=== PATIENT | male | born 1960 | race Caucasian/White ===

== ENCOUNTER 2024-02-01 08:33 | Outpatient (CLI) | payer OTHER, MEDICARE | END 2024-02-01 23:59 | disposition home or self-care (01) | LOC: RAD 08:33 | PROVIDERS: ATTEND Podiatrist Foot & Ankle Surgery | DX: S93.05XA Dislocation of left ankle joint, initial encounter (principal); M14.679 Charcot's joint, unspecified ankle and foot; M79.672 Pain in left foot; M24.573 Contracture, unspecified ankle; G62.9 Polyneuropathy, unspecified; X58.XXXA Exposure to other specified factors, initial encounter; Y93.89 Activity, other specified; Y92.89 Other specified places as the place of occurrence of the external cause; Y99.8 Other external cause status | CPT/HCPCS: 73700 ==

== ENCOUNTER 2024-05-30 10:33 | Day surgery (SDC) | payer BC, MEDICARE ==
[2024-05-30] VITALS (11 sets, daily range): BP systolic 129–166; BP diastolic 80–91; PULSE 57–68; RESP 11–18; TEMP 98.3; O2SAT 94–96
[~2024-05-30] VITALS: Ht 182.9 cm; Wt 102.1 kg
[2024-05-30] MEDS ORDERED: LORazepam 0.5 MG tablet PO PRN (11:10)
[2024-05-30] MEDS ORDERED: nitroGLYCERIN 0.4mg SUBLingual tab SL PRN (11:10)
[2024-05-30] MEDS ORDERED: glucagon, human recombinant 1mg kit SUBCUT PRN (11:10)
[2024-05-30] MEDS ORDERED: diphenhydrAMINE 25mg capsule PO PRN (11:10)
[2024-05-30] MEDS ORDERED: dextrose 50%-water 50ml dispensing syringe IV PRN ×2 (11:10)
[2024-05-30] MEDS ORDERED: normal saline 1,000 ML IV SCH (11:10)
[2024-05-30] MEDS ORDERED: DEXTROSE 15 GM of carb/4 tabs (each vial/BOTTLE has 4 tablets) PO PRN ×2 (11:10)
[2024-05-30 11:23] LABS: BASOPHILS # (AUTO) 0.1 X10'3 (0-0.2); EOSINOPHILS # (AUTO) 0.1 X10'3 (0-0.9); EOSINOPHILS % (AUTO) 1.3 % (0-6); HEMATOCRIT 42.4 % (42.0-52.0); HEMOGLOBIN 14.5 g/dl (14.0-17.9); LYMPHOCYTES # (AUTO) 1.4 X10'3 (1.1-4.8); LYMPHOCYTES % (AUTO) 16.5 % (21-51); MEAN CORPUSCULAR HEMOGLOBIN 33.6 PG (27.0-31.0); MEAN CORPUSCULAR HGB CONC 34.3 g/dL (33.0-36.5); MEAN CORPUSCULAR VOLUME 97.9 FL (78-98); MEAN PLATELET VOLUME 8.3 FL (7.4-10.4); MONOCYTES # (AUTO) 0.7 X10'3 (0-0.9); MONOCYTES % (AUTO) 8.5 % (2-12); NEUTROPHILS # (AUTO) 6.1 X10'3 (1.8-7.7); NEUTROPHILS % (AUTO) 72.7 % (42-75); PLATELET COUNT 234 X10'3 (140-440); RED BLOOD COUNT 4.33 X10'6 (4.70-6.10); RED CELL DISTRIBUTION WIDTH 13.3 % (11.5-14.5); WHITE BLOOD COUNT 8.4 X10'3 (4.5-11.0)
[2024-05-30] MEDS ORDERED: LISI1TAB49 PO (11:23)
[2024-05-30] MEDS ORDERED: ATOR40TA PO (11:23)
[2024-05-30] MEDS ORDERED: METF-900 PO (11:23)
[2024-05-30] MEDS ORDERED: GLIM4TAB7 PO (11:23)
[2024-05-30] MEDS ORDERED: INSU100V41 INJ (11:23)
[2024-05-30] MEDS ORDERED: ASCO500C17 PO (11:23)
[2024-05-30] MEDS ORDERED: MULT-1085 PO (11:23)
[2024-05-30] MEDS ORDERED: DOXY-1 PO (11:23)
[2024-05-30 11:28] LABS: ALBUMIN 4.1 G/DL (3.4-5.0); ANION GAP 10 (8-16); BLOOD UREA NITROGEN 17 MG/DL (7-18); BUN/CREATININE RATIO 17.3 (10.0-20.0); CALCIUM 9.5 MG/DL (8.5-10.1); CHLORIDE 100 MMOL/L (99-107); CREATININE 0.98 MG/DL (0.60-1.10); GLUCOSE 153 MG/DL (70-104); POTASSIUM 4.3 MMOL/L (3.5-5.1); SODIUM 136 MMOL/L (135-145); TOTAL CARBON DIOXIDE 25.7 MMOL/L (24-32); eCRCL 81 ML/MIN; eGFR 77 ML/MIN
[2024-05-30 11:33] LABS: APTT 25 SECONDS (22-32); PROTHROMBIN TIME 10.5 SECONDS (9.0-12.0)
[2024-05-30] MEDS ORDERED: midazolam 1 mg/ML 2ml injection ONE ×2 (12:54→13:48)
[2024-05-30] MEDS ORDERED: fentaNYL/PF 50MCG/1 ML 2ML syringe ONE ×2 (12:54→13:48)
[2024-05-30] MEDS ORDERED: LIDOcaine 1% 30ml preserv. free vial ONE (12:54)
[2024-05-30] MEDS ORDERED: iohexol 350 MG/ML 50ML vial IV ONE (12:54)
[2024-05-30] MEDS ORDERED: iohexol 350MG/ML 100ml bottle IV ONE (12:55)
[2024-05-30] MEDS ORDERED: normal saline 1,000 ML IV ONE (14:57)
[2024-05-30] MEDS ORDERED: ondansetron/PF 4mg/2ml inj IV PRN (15:00)
[2024-05-30] MEDS ORDERED: OXAZEpam 15mg capsule PO PRN (15:00)
[2024-05-30] MEDS ORDERED: HYDROcodone/acetaminophen 5mg/325mg tablet PO PRN (15:00)
[2024-05-30] MEDS ORDERED: HYDROcodone/acetaminophen 10/325mg tab PO PRN (15:00)
[2024-05-30] MEDS ORDERED: proCHLORperazine 10 MG/2 ml inj IV PRN (15:00)
== END 2024-05-30 19:33 | disposition home or self-care (01) ==
LOC: SSTAY O 10:33
PROVIDERS: ATTEND Internal Medicine Cardiovascular Disease
DX: R94.39 Abnormal result of other cardiovascular function study (principal); I49.1 Atrial premature depolarization; I10 Essential (primary) hypertension; E11.40 Type 2 diabetes mellitus with diabetic neuropathy, unspecified; E66.9 Obesity, unspecified; G47.30 Sleep apnea, unspecified; I25.2 Old myocardial infarction
CPT/HCPCS: 36415; 71046; 80048; 82948; 85025; 85610; 85730; 93005; 93459; 99152; 99153; J1644; J2250; J3010; J3490; J7030; Q9967; 93458; A6258; C1760

== ENCOUNTER 2024-08-30 05:27 | Inpatient (IN) | payer BC, MEDICARE ==
[2024-08-23 14:13] LABS: BASOPHILS # (AUTO) 0.1 X10'3 (0-0.2); BASOPHILS % (AUTO) 1.3 % (0-1); EOSINOPHILS # (AUTO) 0.1 X10'3 (0-0.9); EOSINOPHILS % (AUTO) 0.9 % (0-6); LYMPHOCYTES # (AUTO) 1.9 X10'3 (1.1-4.8); LYMPHOCYTES % (AUTO) 22.2 % (21-51); MEAN CORPUSCULAR HEMOGLOBIN 34.3 PG (27.0-31.0); MEAN CORPUSCULAR HGB CONC 34.5 g/dL (33.0-36.5); MEAN CORPUSCULAR VOLUME 99.4 FL (78-98); MEAN PLATELET VOLUME 8.8 FL (7.4-10.4); MONOCYTES # (AUTO) 0.7 X10'3 (0-0.9); NEUTROPHILS # (AUTO) 5.7 X10'3 (1.8-7.7); NEUTROPHILS % (AUTO) 67.6 % (42-75); PRE OP HEMATOCRIT 41.8 % (42.0-52.0); PRE OP HEMOGLOBIN 14.4 g/dL (14.0-17.9); PRE OP PLATELET COUNT 193 X10'3 (140-440); PRE OP WHITE BLOOD COUNT 8.4 10'3 (4.8-10.8); RED CELL DISTRIBUTION WIDTH 13.1 % (11.5-14.5)
[2024-08-23 14:25] LABS: ALBUMIN 3.9 G/DL (3.4-5.0); ALKALINE PHOSPHATASE 108 IU/L (46-116); BLOOD UREA NITROGEN 14 MG/DL (7-18); BUN/CREATININE RATIO 14.4 (10.0-20.0); CALCIUM 9.3 MG/DL (8.5-10.1); CHLORIDE 100 MMOL/L (99-107); CREATININE 0.97 MG/DL (0.60-1.10); PRE OP ALT 32 U/L (30-65); PRE OP ANION GAP 7 (8-16); PRE OP AST 30 U/L (10-37); PRE OP BILIRUB, TOTAL 1.1 MG/DL (0.0-1.0); PRE OP GLUCOSE 130 MG/DL (70-104); PRE OP INR 1.1 INR; PRE OP POTASSIUM 4.3 MMOL/L (3.4-5.1); PRE OP PROTIME 11.5 SECONDS (9.0-12.0); PRE OP SODIUM 136 MMOL/L (135-145); TOTAL PROTEIN 7.7 G/DL (6.4-8.2); eGFR 77 ML/MIN
[2024-08-23 14:26] LABS: HEMOGLOBIN A1C 6.9 % (4.5-6.2)
[2024-08-23 15:35] LABS: BILIRUBIN,URINE NEGATIVE (Neg); CLARITY,URINE CLEAR (Clear); COLOR,URINE YELLOW (Yellow); GLUCOSE, URINE NEGATIVE (Neg); KETONES,URINE NEGATIVE (Neg); LEUKOCYTE ESTERASE ,URINE NEGATIVE (Neg); NITRITES, URINE NEGATIVE (Neg); OCCULT BLOOD,URINE NEGATIVE (Neg); PH,URINE 6.5 (4.8-8.0); PROTEIN,URINE NEGATIVE (Neg); UROBILINOGEN,URINE 0.2 E.U/dL (0.2-1.0)
[2024-08-23 15:40] LABS: UA COLLECTION TYPE CLN CATCH MIDSTREAM
[2024-08-27 09:29] LABS: ABG BASE EXCESS -1.5 mmol/L (-2.0-3.0); ABG HCO3 22.1 mmol/L (21.0-28.0); ABG OXYGEN SATURATION 94.4 % (94.0-98.0); ABG PCO2 (T) 34.1 mmHg (35.0-48.0); ABG PH (T) 7.429 (7.350-7.450); ABG PO2 (T) 74.1 mmHg (83.0-108.0); ALLEN'S TEST POSITIVE; FCOHb 0.3 % (0.5-1.5); FHHb 5.6 % (0.0-5.0); FMetHb 0.1 % (0.0-1.5); MODE ROOM AIR; TOTAL HEMOGLOBIN 14.5 G/dl (13.5-17.5)
[~2024-08-30] VITALS: Ht 180.3 cm; Wt 108.0 kg
[2024-08-30] VITALS (20 sets, daily range): BP systolic 97–169; BP diastolic 49–97; PULSE 57–66; RESP 7–18; TEMP 97.8; O2SAT 92–100
[~2024-08-30 05:27] MED LIST: ATOR40TA PO; DOXY-1 PO; GLIM4TAB7 PO; INSU100V41 INJ; LISI1TAB51 PO; METF-1203 PO
[2024-08-30] MEDS ORDERED: insulin glargine (Lantus) pen - multi-dose SQ PRN ×2 (05:30→11:00)
[2024-08-30] MEDS: ceFAZolin 2gm in dextrose, iso 50 ML IV ONE (05:30)
[2024-08-30] MEDS: Insulin Reg/NS 100units/100mL 100 ML IV SCH ×2 (05:30→12:07)
[2024-08-30] MEDS ORDERED: dextrose 50%-water 50ml dispensing syringe IV PRN ×2 (05:30→11:00)
[2024-08-30] MEDS: epiNEPHrine 1 mg/ml inj ONE (06:46)
[2024-08-30] MEDS: ceFAZolin 1000mg inj ONE (06:46)
[2024-08-30] MEDS: vancomycin 1,000mg inj ONE (06:46)
[2024-08-30] MEDS: BUPIVAcaine 0.5% inj/PF 30 ML ONE (06:46)
[2024-08-30] MEDS: ringers solution, lacted 1,000 ML IV SCH (07:05)
[2024-08-30] MEDS: metoprolol tartrate 12.5mg (1/2 tablet) PO ONE (07:06)
[2024-08-30] MEDS: mupirocin 2% nasal ointment 1gm UD NS ONE (07:06)
[2024-08-30] MEDS: vancomycin 1,500 MG in NS 300ml IV soln IV ONE (07:06)
[2024-08-30] MEDS: famotidine 20mg tablet PO ONE (07:06)
[2024-08-30] MEDS ORDERED: SUfentanil 50mcg/ml 1ml amp IV ONE (07:52)
[2024-08-30] MEDS ORDERED: rocuronium 10mg/ml inj IV ONE ×2 (07:54→10:30)
[2024-08-30] MEDS ORDERED: LIDOcaine 2% (20mg/ml) 5ml vial ONE (07:54)
[2024-08-30] MEDS ORDERED: propofol inj 20 ML IV ONE (07:54)
[2024-08-30] MEDS ORDERED: isoflurane 100ml inhalation liquid IH ONE (07:55)
[2024-08-30] MEDS: LORazepam 2 mg/ml vial ONE (08:03)
[2024-08-30] MEDS: ceFAZolin 1000mg inj IR ONE (08:33)
[2024-08-30 08:54] LABS: ABG BASE EXCESS -1.1 mmol/L (-2.0-3.0); ABG HCO3 21.5 mmol/L (21.0-28.0); ABG OXYGEN SATURATION 98.8 % (94.0-98.0); ABG PCO2 29.7 mmHg (35.0-48.0); ABG PH 7.477 (7.350-7.450); ABG PO2 169.9 mmHg (83.0-108.0); CL (ABG) 102 mmol/L (98-107); FCOHb 0.3 % (0.5-1.5); FHHb 1.2 % (0.0-5.0); FO2Hb 98.5 % (94.0-98.0); GLUCOSE (ABG) 109 mg/dl (65-95); IONIZED CA (ABG) 1.16 mmol/L (1.15-1.33); K (ABG) 3.9 mmol/L (3.40-4.50); TOTAL HEMOGLOBIN 12.3 G/dl (13.5-17.5)
[2024-08-30] MEDS: LORazepam 2 mg/ml vial IV PRN (09:05)
[2024-08-30] MEDS ORDERED: albuterol 2.5 MG/3 ML nebule NEB PRN (10:00)
[2024-08-30] MEDS ORDERED: albumin (Human) 5% 250ml 250 ML IV ONE ×2 (10:30)
[2024-08-30 10:48] LABS: ABG BASE EXCESS -4.2 mmol/L (-2.0-3.0); ABG HCO3 20.6 mmol/L (21.0-28.0); ABG OXYGEN SATURATION 94.7 % (94.0-98.0); ABG PCO2 36.9 mmHg (35.0-48.0); ABG PH 7.365 (7.350-7.450); ABG PO2 79.3 mmHg (83.0-108.0); CL (ABG) 105 mmol/L (98-107); FCOHb 0.3 % (0.5-1.5); FHHb 5.3 % (0.0-5.0); FMetHb 0.3 % (0.0-1.5); FO2Hb 94.1 % (94.0-98.0); GLUCOSE (ABG) 170 mg/dl (65-95); IONIZED CA (ABG) 1.09 mmol/L (1.15-1.33); K (ABG) 3.9 mmol/L (3.40-4.50); TOTAL HEMOGLOBIN 11.3 G/dl (13.5-17.5)
[2024-08-30] MEDS ORDERED: potassium Cl 40MEQ/1/2NS 520ml 520 ML IV PRN (11:00)
[2024-08-30] MEDS ORDERED: magnesium hydroxide 30ml (MOM) UD suspension PO PRN (11:00)
[2024-08-30] MEDS ORDERED: metoclopramide 5 mg/ml inj IV PRN (11:00)
[2024-08-30] MEDS ORDERED: mineral oil 133ml enema RC PRN (11:00)
[2024-08-30] MEDS ORDERED: ondansetron/PF 4mg/2ml inj IV PRN (11:00)
[2024-08-30] MEDS ORDERED: morphine 4 MG/ML inj SYRINge IV PRN (11:00)
[2024-08-30] MEDS ORDERED: Neutra Phos packet PO PRN (11:00)
[2024-08-30] MEDS ORDERED: nitroGLYCERIN-Tridil 50MG/D5W 250 ML IV PRN (11:00)
[2024-08-30] MEDS ORDERED: niCARDipine-NS 40mg/200ml IVPB 200 ML IV PRN (11:00)
[2024-08-30] MEDS ORDERED: bisacodyl 10mg suppository rectal RC PRN (11:00)
[2024-08-30] MEDS ORDERED: sodium phosphate inj. 30 MMOL in dextrose 5%-water 250 ML IV PRN (11:00)
[2024-08-30] MEDS ORDERED: acetaminophen 325mg tablet PO PRN ×2 (11:00)
[2024-08-30] MEDS ORDERED: potassium CL 10mEq/100ml bag 100 ML IV PRN (11:00)
[2024-08-30 11:35] LABS: ABG BASE EXCESS -4.3 mmol/L (-2.0-3.0); ABG HCO3 20.9 mmol/L (21.0-28.0); ABG OXYGEN SATURATION 97.7 % (94.0-98.0); ABG PCO2 (T) 35.4 mmHg (35.0-48.0); ABG PH (T) 7.379 (7.350-7.450); FCOHb 0.3 % (0.5-1.5); FHHb 2.3 % (0.0-5.0); FMetHb 0.3 % (0.0-1.5); FO2Hb 97.1 % (94.0-98.0); MODE VENT - SIMV/VC; PATIENT TEMPERATURE 35.1; PEEP 5 cm H2O; RESPIRATORY RATE 12 b/min; TIDAL VOLUME 600 mL; TOTAL HEMOGLOBIN 11.9 G/dl (13.5-17.5)
[2024-08-30 11:42] LABS: BASOPHILS # (AUTO) 0.1 X10'3 (0-0.2); BASOPHILS % (AUTO) 0.7 % (0-1); EOSINOPHILS # (AUTO) 0.1 X10'3 (0-0.9); EOSINOPHILS % (AUTO) 0.7 % (0-6); HEMATOCRIT 32.7 % (42.0-52.0); HEMOGLOBIN 10.9 g/dl (14.0-17.9); LYMPHOCYTES # (AUTO) 1.5 X10'3 (1.1-4.8); LYMPHOCYTES % (AUTO) 11.7 % (21-51); MEAN CORPUSCULAR HEMOGLOBIN 33.3 PG (27.0-31.0); MEAN CORPUSCULAR HGB CONC 33.5 g/dL (33.0-36.5); MEAN CORPUSCULAR VOLUME 99.4 FL (78-98); MEAN PLATELET VOLUME 8.5 FL (7.4-10.4); MONOCYTES # (AUTO) 0.7 X10'3 (0-0.9); MONOCYTES % (AUTO) 5.7 % (2-12); NEUTROPHILS # (AUTO) 10.4 X10'3 (1.8-7.7); NEUTROPHILS % (AUTO) 81.2 % (42-75); PLATELET COUNT 133 X10'3 (140-440); RED BLOOD COUNT 3.29 X10'6 (4.70-6.10); RED CELL DISTRIBUTION WIDTH 13.1 % (11.5-14.5); WHITE BLOOD COUNT 12.9 X10'3 (4.5-11.0)
[2024-08-30] MEDS: albumin (Human) 5% 250ml 250 ML IV PRN (12:06)
[2024-08-30] MEDS: sodium chloride 0.45% 1,000 ML IV SCH (12:29)
[2024-08-30 12:34] LABS: APTT 27 SECONDS (22-32); INR 1.3 INR
[2024-08-30 12:36] LABS: ALANINE AMINOTRANSFERASE 26 U/L (12-78); ALBUMIN 3.1 G/DL (3.4-5.0); ALBUMIN/GLOBULIN RATIO 1.3 (1.1-1.5); ALKALINE PHOSPHATASE 62 IU/L (46-116); ANION GAP 11 (8-16); ASPARTATE AMINO TRANSFERASE 24 U/L (10-37); BILIRUBIN,TOTAL 0.9 MG/DL (0.1-1.0); BLOOD UREA NITROGEN 12 MG/DL (7-18); BUN/CREATININE RATIO 13.8 (10.0-20.0); CALCIUM 7.5 MG/DL (8.5-10.1); CHLORIDE 105 MMOL/L (99-107); CREATININE 0.87 MG/DL (0.60-1.10); GLUCOSE 157 MG/DL (70-104); MAGNESIUM 1.4 MG/DL (1.5-2.4); PHOSPHORUS 2.8 MG/DL (2.3-4.5); POTASSIUM 3.7 MMOL/L (3.5-5.1); SODIUM 138 MMOL/L (135-145); TOTAL PROTEIN 5.4 G/DL (6.4-8.2); eCRCL 89 ML/MIN; eGFR 88 ML/MIN
[2024-08-30] MEDS: ketorolac trometh 15mg/ml vial 15 MG/ML ML IV SCH (13:03)
[2024-08-30] MEDS: magnesium sulf-water 4G/100mL 100 ML IV PRN (13:19)
[2024-08-30] MEDS: potassium Cl 20mEq/100mL bag 100 ML IV PRN (13:19)
[2024-08-30] MEDS: NORepinephrine 8mg/ 250ml NS 250 ML IV SCH (15:38)
[2024-08-30] MEDS: morphine 2 MG/ML inj. syringe IV PRN (16:47)
[2024-08-30] MEDS: ceFAZolin/D5W- 1GM premix 50 ML IV SCH (17:04)
[2024-08-30 17:38] LABS: BASOPHILS # (AUTO) 0.1 X10'3 (0-0.2); BASOPHILS % (AUTO) 0.5 % (0-1); EOSINOPHILS % (AUTO) 0.1 % (0-6); HEMATOCRIT 30.2 % (42.0-52.0); HEMOGLOBIN 10.1 g/dl (14.0-17.9); LYMPHOCYTES # (AUTO) 0.7 X10'3 (1.1-4.8); LYMPHOCYTES % (AUTO) 5.7 % (21-51); MEAN CORPUSCULAR HEMOGLOBIN 33.3 PG (27.0-31.0); MEAN CORPUSCULAR HGB CONC 33.6 g/dL (33.0-36.5); MEAN CORPUSCULAR VOLUME 99.2 FL (78-98); MEAN PLATELET VOLUME 8.6 FL (7.4-10.4); MONOCYTES # (AUTO) 0.7 X10'3 (0-0.9); MONOCYTES % (AUTO) 6.1 % (2-12); NEUTROPHILS # (AUTO) 10.4 X10'3 (1.8-7.7); NEUTROPHILS % (AUTO) 87.6 % (42-75); PLATELET COUNT 151 X10'3 (140-440); RED BLOOD COUNT 3.05 X10'6 (4.70-6.10); RED CELL DISTRIBUTION WIDTH 13.2 % (11.5-14.5); WHITE BLOOD COUNT 11.8 X10'3 (4.5-11.0)
[2024-08-30 18:01] LABS: ALBUMIN 3.5 G/DL (3.4-5.0); ANION GAP 10 (8-16); BLOOD UREA NITROGEN 12 MG/DL (7-18); BUN/CREATININE RATIO 13.2 (10.0-20.0); CALCIUM 7.7 MG/DL (8.5-10.1); CHLORIDE 106 MMOL/L (99-107); CREATININE 0.91 MG/DL (0.60-1.10); GLUCOSE 128 MG/DL (70-104); MAGNESIUM 2.7 MG/DL (1.5-2.4); PHOSPHORUS 2.6 MG/DL (2.3-4.5); POTASSIUM 4.9 MMOL/L (3.5-5.1); SODIUM 136 MMOL/L (135-145); TOTAL CARBON DIOXIDE 19.8 MMOL/L (24-32); eCRCL 85 ML/MIN; eGFR 83 ML/MIN
[2024-08-30] MEDS: amiodarone 150mg/dext, iso-os 100 ML IV ONE (18:31)
[2024-08-30] MEDS: amiodarone/D5 360MG/200ML BAG 200 ML IV SCH (18:40)
[2024-08-30] MEDS: vancomycin/NS 1 GM ADD-VANTAGE 250 ML IV SCH (20:20)
[2024-08-30] MEDS: mupirocin 2% nasal ointment 1gm UD NS SCH (20:21)
[2024-08-30] MEDS: atorvastatin 10mg tablet PO SCH (20:21)
[2024-08-30] MEDS: sennosides/docusate sodium tablet PO SCH (20:22)
[2024-08-31] VITALS (28 sets, daily range): BP systolic 98–128; BP diastolic 49–76; PULSE 50–77; RESP 14–26; O2SAT 89–97
[2024-08-31 02:34] LABS: BASOPHILS # (AUTO) 0.1 X10'3 (0-0.2); BASOPHILS % (AUTO) 0.7 % (0-1); EOSINOPHILS % (AUTO) 0.1 % (0-6); HEMATOCRIT 31.1 % (42.0-52.0); HEMOGLOBIN 10.7 g/dl (14.0-17.9); LYMPHOCYTES # (AUTO) 1.3 X10'3 (1.1-4.8); LYMPHOCYTES % (AUTO) 13.5 % (21-51); MEAN CORPUSCULAR HEMOGLOBIN 34.2 PG (27.0-31.0); MEAN CORPUSCULAR HGB CONC 34.4 g/dL (33.0-36.5); MEAN CORPUSCULAR VOLUME 99.4 FL (78-98); MEAN PLATELET VOLUME 8.9 FL (7.4-10.4); MONOCYTES # (AUTO) 0.8 X10'3 (0-0.9); MONOCYTES % (AUTO) 8.6 % (2-12); NEUTROPHILS # (AUTO) 7.6 X10'3 (1.8-7.7); NEUTROPHILS % (AUTO) 77.1 % (42-75); PLATELET COUNT 144 X10'3 (140-440); RED BLOOD COUNT 3.13 X10'6 (4.70-6.10); RED CELL DISTRIBUTION WIDTH 13.5 % (11.5-14.5); WHITE BLOOD COUNT 9.8 X10'3 (4.5-11.0)
[2024-08-31 02:48] LABS: ALANINE AMINOTRANSFERASE 23 U/L (12-78); ALBUMIN 3.2 G/DL (3.4-5.0); ALBUMIN/GLOBULIN RATIO 1.3 (1.1-1.5); ALKALINE PHOSPHATASE 57 IU/L (46-116); ANION GAP 9 (8-16); ASPARTATE AMINO TRANSFERASE 24 U/L (10-37); BILIRUBIN,TOTAL 0.8 MG/DL (0.1-1.0); BLOOD UREA NITROGEN 11 MG/DL (7-18); BUN/CREATININE RATIO 10.8 (10.0-20.0); CALCIUM 7.6 MG/DL (8.5-10.1); CHLORIDE 105 MMOL/L (99-107); CREATININE 1.02 MG/DL (0.60-1.10); GLUCOSE 132 MG/DL (70-104); MAGNESIUM 2.3 MG/DL (1.5-2.4); PHOSPHORUS 2.8 MG/DL (2.3-4.5); POTASSIUM 4.3 MMOL/L (3.5-5.1); SODIUM 134 MMOL/L (135-145); TOTAL CARBON DIOXIDE 19.8 MMOL/L (24-32); TOTAL PROTEIN 5.6 G/DL (6.4-8.2); eCRCL 76 ML/MIN; eGFR 73 ML/MIN
[2024-08-31] MEDS: magnesium sulf-water 2g/50mL 50 ML IV PRN (03:32)
[2024-08-31] MEDS: potassium Cl 40MEQ/270ML bag 250 ML IV PRN (03:55)
[2024-08-31] MEDS: metoprolol tartrate 12.5mg (1/2 tablet) PO SCH (08:00)
[2024-08-31] MEDS: albumin (Human) 5% 250ml 250 ML IV ONE (08:31)
[2024-08-31] MEDS: aspirin 81mg tab.chew PO SCH (08:35)
[2024-08-31] MEDS: DOPamine 400mg/D5W 250ml 250 ML IV SCH (08:44)
[2024-08-31 09:53] LABS: ABG BASE EXCESS -7.9 mmol/L (-2.0-3.0); ABG HCO3 16.9 mmol/L (21.0-28.0); ABG OXYGEN SATURATION 91.8 % (94.0-98.0); ABG PCO2 (T) 32.1 mmHg (35.0-48.0); ABG PO2 (T) 65.3 mmHg (83.0-108.0); FCOHb 0.3 % (0.5-1.5); FHHb 8.2 % (0.0-5.0); FMetHb 0.3 % (0.0-1.5); FO2Hb 91.2 % (94.0-98.0); MODE MASK - NRB; PATIENT TEMPERATURE 36.9; TOTAL HEMOGLOBIN 10.9 G/dl (13.5-17.5)
[2024-08-31] MEDS: HYDROcodone/acetaminophen 10/325mg tab PO PRN ×2 (15:06→20:53)
[2024-09-01] VITALS (32 sets, daily range): BP systolic 99–141; BP diastolic 57–81; PULSE 58–82; RESP 13–29; O2SAT 90–100
[2024-09-01 04:54] LABS: ALBUMIN 2.9 G/DL (3.4-5.0); ANION GAP 5 (8-16); BLOOD UREA NITROGEN 10 MG/DL (7-18); BUN/CREATININE RATIO 9.9 (10.0-20.0); CALCIUM 7.9 MG/DL (8.5-10.1); CHLORIDE 105 MMOL/L (99-107); CREATININE 1.01 MG/DL (0.60-1.10); GLUCOSE 126 MG/DL (70-104); MAGNESIUM 2.1 MG/DL (1.5-2.4); PHOSPHORUS 2.1 MG/DL (2.3-4.5); POTASSIUM 4.3 MMOL/L (3.5-5.1); SODIUM 133 MMOL/L (135-145); eCRCL 77 ML/MIN; eGFR 74 ML/MIN
[2024-09-01 06:34] LABS: BASOPHILS # (AUTO) 0.1 X10'3 (0-0.2); BASOPHILS % (AUTO) 0.4 % (0-1); EOSINOPHILS # (AUTO) 0.1 X10'3 (0-0.9); EOSINOPHILS % (AUTO) 0.6 % (0-6); HEMOGLOBIN 11.3 g/dl (14.0-17.9); LYMPHOCYTES # (AUTO) 1.4 X10'3 (1.1-4.8); LYMPHOCYTES % (AUTO) 10.5 % (21-51); MEAN CORPUSCULAR HGB CONC 34.2 g/dL (33.0-36.5); MEAN CORPUSCULAR VOLUME 99.4 FL (78-98); MEAN PLATELET VOLUME 8.9 FL (7.4-10.4); MONOCYTES % (AUTO) 8.1 % (2-12); NEUTROPHILS # (AUTO) 10.4 X10'3 (1.8-7.7); NEUTROPHILS % (AUTO) 80.4 % (42-75); PLATELET COUNT 137 X10'3 (140-440); RED BLOOD COUNT 3.32 X10'6 (4.70-6.10); RED CELL DISTRIBUTION WIDTH 13.4 % (11.5-14.5); WHITE BLOOD COUNT 12.9 X10'3 (4.5-11.0)
[2024-09-01] MEDS: pantoprazole 40mg Tablet.DR PO SCH (08:10)
[2024-09-01] MEDS: sodium phosphate inj. 15 MMOL in dextrose 5%-water 250 ML IV PRN (08:10)
[2024-09-01] MEDS ORDERED: glucagon, human recombinant 1mg kit SUBCUT PRN (09:20)
[2024-09-01] MEDS ORDERED: DEXTROSE 15 GM of carb/4 tabs (each vial/BOTTLE has 4 tablets) PO PRN ×2 (09:20)
[2024-09-01] MEDS ORDERED: dextrose 50%-water 50ml dispensing syringe IV PRN ×2 (09:20)
[2024-09-01] MEDS: INSULIN LISPRO 100 UNIT/ML INSULN.PEN MULTI-DOSE SQ SCH (12:11)
[2024-09-02] VITALS (21 sets, daily range): BP systolic 106–144; BP diastolic 65–87; PULSE 59–78; RESP 11–23; TEMP 97.5–98.4; O2SAT 94–98
[2024-09-02 03:38] LABS: BASOPHILS % (AUTO) 0.4 % (0-1); EOSINOPHILS # (AUTO) 0.2 X10'3 (0-0.9); EOSINOPHILS % (AUTO) 1.5 % (0-6); HEMATOCRIT 28.8 % (42.0-52.0); HEMOGLOBIN 9.9 g/dl (14.0-17.9); LYMPHOCYTES # (AUTO) 1.4 X10'3 (1.1-4.8); LYMPHOCYTES % (AUTO) 14.4 % (21-51); MEAN CORPUSCULAR HEMOGLOBIN 34.5 PG (27.0-31.0); MEAN CORPUSCULAR HGB CONC 34.3 g/dL (33.0-36.5); MEAN CORPUSCULAR VOLUME 100.3 FL (78-98); MEAN PLATELET VOLUME 8.7 FL (7.4-10.4); MONOCYTES # (AUTO) 0.8 X10'3 (0-0.9); MONOCYTES % (AUTO) 8.4 % (2-12); NEUTROPHILS # (AUTO) 7.4 X10'3 (1.8-7.7); NEUTROPHILS % (AUTO) 75.3 % (42-75); PLATELET COUNT 129 X10'3 (140-440); RED BLOOD COUNT 2.87 X10'6 (4.70-6.10); RED CELL DISTRIBUTION WIDTH 13.6 % (11.5-14.5); WHITE BLOOD COUNT 9.9 X10'3 (4.5-11.0)
[2024-09-02 03:46] LABS: ALBUMIN 2.4 G/DL (3.4-5.0); ANION GAP 7 (8-16); BLOOD UREA NITROGEN 12 MG/DL (7-18); BUN/CREATININE RATIO 12.8 (10.0-20.0); CHLORIDE 104 MMOL/L (99-107); CREATININE 0.94 MG/DL (0.60-1.10); GLUCOSE 132 MG/DL (70-104); PHOSPHORUS 2.6 MG/DL (2.3-4.5); POTASSIUM 4.4 MMOL/L (3.5-5.1); SODIUM 134 MMOL/L (135-145); TOTAL CARBON DIOXIDE 23.2 MMOL/L (24-32); eCRCL 82 ML/MIN; eGFR 80 ML/MIN
[2024-09-02] MEDS: potassium Cl 20 mEq SR tablet PO PRN (04:29)
[2024-09-02] MEDS ORDERED: potassium Cl 20 mEq SR tablet PO PRN ×2 (09:20)
[2024-09-02] MEDS ORDERED: magnesium sulf-water 2g/50mL 50 ML IV PRN (09:20)
[2024-09-02] MEDS ORDERED: potassium Cl 40MEQ/1/2NS 520ml 520 ML IV PRN (09:20)
[2024-09-02] MEDS ORDERED: magnesium sulf-water 4G/100mL 100 ML IV PRN (09:20)
[2024-09-02] MEDS ORDERED: potassium Cl 40MEQ/270ML bag 250 ML IV PRN (09:20)
[2024-09-02] MEDS ORDERED: potassium Cl 20mEq/100mL bag 100 ML IV PRN (09:20)
[2024-09-02] MEDS ORDERED: potassium CL 10mEq/100ml bag 100 ML IV PRN (09:20)
[2024-09-02] MEDS: furosemide 40mg/4ml inj IV ONE (10:00)
[2024-09-02] MEDS ORDERED: ASPI81TA53 PO (16:53)
[2024-09-02] MEDS ORDERED: LOP12.5T PO (16:53)
[2024-09-02] MEDS ORDERED: HYDR-3972 PO (16:53)
[2024-09-02] MEDS: magnesium Cl slow-release 64mg tablet PO SCH (21:07)
[2024-09-03] VITALS (24 sets, daily range): BP systolic 98–141; BP diastolic 68–100; PULSE 66–146; RESP 16–29; TEMP 97.5–99; O2SAT 92–97
[2024-09-03] MEDS: amiodarone 150mg/dext, iso-os 100 ML IV ONE (01:07)
[2024-09-03] MEDS: amiodarone/D5 360MG/200ML BAG 200 ML IV SCH (01:17)
[2024-09-03 06:15] LABS: BASOPHILS # (AUTO) 0.1 X10'3 (0-0.2); BASOPHILS % (AUTO) 0.8 % (0-1); EOSINOPHILS # (AUTO) 0.2 X10'3 (0-0.9); EOSINOPHILS % (AUTO) 1.7 % (0-6); HEMATOCRIT 32.7 % (42.0-52.0); HEMOGLOBIN 11.1 g/dl (14.0-17.9); LYMPHOCYTES # (AUTO) 1.2 X10'3 (1.1-4.8); MEAN CORPUSCULAR HEMOGLOBIN 33.8 PG (27.0-31.0); MEAN CORPUSCULAR HGB CONC 33.9 g/dL (33.0-36.5); MEAN CORPUSCULAR VOLUME 99.8 FL (78-98); MEAN PLATELET VOLUME 8.6 FL (7.4-10.4); MONOCYTES # (AUTO) 0.9 X10'3 (0-0.9); MONOCYTES % (AUTO) 9.7 % (2-12); NEUTROPHILS # (AUTO) 7.4 X10'3 (1.8-7.7); NEUTROPHILS % (AUTO) 75.8 % (42-75); PLATELET COUNT 171 X10'3 (140-440); RED BLOOD COUNT 3.27 X10'6 (4.70-6.10); RED CELL DISTRIBUTION WIDTH 13.5 % (11.5-14.5); WHITE BLOOD COUNT 9.7 X10'3 (4.5-11.0)
[2024-09-03 06:38] LABS: ALBUMIN 2.4 G/DL (3.4-5.0); ANION GAP 8 (8-16); BLOOD UREA NITROGEN 16 MG/DL (7-18); BUN/CREATININE RATIO 16.2 (10.0-20.0); CALCIUM 8.5 MG/DL (8.5-10.1); CHLORIDE 100 MMOL/L (99-107); CREATININE 0.99 MG/DL (0.60-1.10); GLUCOSE 191 MG/DL (70-104); MAGNESIUM 1.9 MG/DL (1.5-2.4); SODIUM 132 MMOL/L (135-145); TOTAL CARBON DIOXIDE 23.7 MMOL/L (24-32); eCRCL 78 ML/MIN; eGFR 76 ML/MIN
[2024-09-03] MEDS: metoprolol tartrate 12.5mg (1/2 tablet) PO SCH (08:49)
[2024-09-03] MEDS: lactose-reduced food (Ensure Enlive) - 237ml bottle PO SCH (18:00)
[2024-09-04] VITALS (13 sets, daily range): BP systolic 113–143; BP diastolic 48–93; PULSE 62–114; RESP 14–26; TEMP 97.6–98.7; O2SAT 92–98
[2024-09-04 07:17] LABS: BASOPHILS # (AUTO) 0.1 X10'3 (0-0.2); BASOPHILS % (AUTO) 1.4 % (0-1); EOSINOPHILS # (AUTO) 0.3 X10'3 (0-0.9); EOSINOPHILS % (AUTO) 3.2 % (0-6); HEMATOCRIT 32.6 % (42.0-52.0); HEMOGLOBIN 11.2 g/dl (14.0-17.9); LYMPHOCYTES # (AUTO) 1.5 X10'3 (1.1-4.8); LYMPHOCYTES % (AUTO) 17.5 % (21-51); MEAN CORPUSCULAR HEMOGLOBIN 33.7 PG (27.0-31.0); MEAN CORPUSCULAR HGB CONC 34.3 g/dL (33.0-36.5); MEAN CORPUSCULAR VOLUME 98.3 FL (78-98); MEAN PLATELET VOLUME 8.9 FL (7.4-10.4); MONOCYTES # (AUTO) 0.9 X10'3 (0-0.9); MONOCYTES % (AUTO) 10.9 % (2-12); NEUTROPHILS # (AUTO) 5.8 X10'3 (1.8-7.7); PLATELET COUNT 200 X10'3 (140-440); RED BLOOD COUNT 3.31 X10'6 (4.70-6.10); RED CELL DISTRIBUTION WIDTH 13.1 % (11.5-14.5); WHITE BLOOD COUNT 8.6 X10'3 (4.5-11.0)
[2024-09-04 07:29] LABS: ALBUMIN 2.5 G/DL (3.4-5.0); ANION GAP 8 (8-16); BLOOD UREA NITROGEN 16 MG/DL (7-18); BUN/CREATININE RATIO 15.2 (10.0-20.0); CALCIUM 8.6 MG/DL (8.5-10.1); CHLORIDE 101 MMOL/L (99-107); CREATININE 1.05 MG/DL (0.60-1.10); GLUCOSE 193 MG/DL (70-104); MAGNESIUM 1.9 MG/DL (1.5-2.4); POTASSIUM 4.4 MMOL/L (3.5-5.1); SODIUM 134 MMOL/L (135-145); TOTAL CARBON DIOXIDE 25.5 MMOL/L (24-32); eCRCL 74 ML/MIN; eGFR 71 ML/MIN
[2024-09-04] MEDS: amiodarone 200mg tablet PO SCH (09:52)
[2024-09-04 11:10] LABS: ACTIVATED CLOTTING TIME 135 SEC (101-148)
[2024-09-05 02:00] VITALS: BP 130/78; PULSE 62; RESP 22; TEMP 98.4; O2SAT 90
[2024-09-05 06:00] VITALS: BP 139/80; PULSE 62; RESP 20; TEMP 98.1; O2SAT 92
[2024-09-05 07:35] LABS: BASOPHILS # (AUTO) 0.1 X10'3 (0-0.2); EOSINOPHILS # (AUTO) 0.3 X10'3 (0-0.9); EOSINOPHILS % (AUTO) 3.8 % (0-6); HEMATOCRIT 32.1 % (42.0-52.0); HEMOGLOBIN 10.9 g/dl (14.0-17.9); LYMPHOCYTES # (AUTO) 1.3 X10'3 (1.1-4.8); LYMPHOCYTES % (AUTO) 15.2 % (21-51); MEAN CORPUSCULAR HEMOGLOBIN 33.5 PG (27.0-31.0); MEAN CORPUSCULAR HGB CONC 33.9 g/dL (33.0-36.5); MEAN CORPUSCULAR VOLUME 98.8 FL (78-98); MEAN PLATELET VOLUME 8.7 FL (7.4-10.4); MONOCYTES % (AUTO) 10.9 % (2-12); NEUTROPHILS # (AUTO) 6.1 X10'3 (1.8-7.7); NEUTROPHILS % (AUTO) 69.1 % (42-75); PLATELET COUNT 216 X10'3 (140-440); RED BLOOD COUNT 3.24 X10'6 (4.70-6.10); RED CELL DISTRIBUTION WIDTH 13.5 % (11.5-14.5); WHITE BLOOD COUNT 8.8 X10'3 (4.5-11.0)
[2024-09-05 07:42] LABS: ALBUMIN 2.5 G/DL (3.4-5.0); ANION GAP 9 (8-16); BLOOD UREA NITROGEN 15 MG/DL (7-18); CALCIUM 8.8 MG/DL (8.5-10.1); CHLORIDE 99 MMOL/L (99-107); CREATININE 0.88 MG/DL (0.60-1.10); GLUCOSE 209 MG/DL (70-104); MAGNESIUM 1.9 MG/DL (1.5-2.4); POTASSIUM 4.3 MMOL/L (3.5-5.1); SODIUM 133 MMOL/L (135-145); eCRCL 88 ML/MIN; eGFR 87 ML/MIN
[2024-09-05 08:00] VITALS: RESP 16; O2SAT 98
[2024-09-05] MEDS ORDERED: AMI200T PO (09:05)
[2024-09-05 11:00] VITALS: BP 128/76; PULSE 60; RESP 12; TEMP 98; O2SAT 93
== END 2024-09-05 13:34 | disposition home or self-care (01) | DRG 236 ==
LOC: PAS IN 05:27 → CICU 2S 09:13 → PCU 3S 09-02 12:15
PROVIDERS: ADMIT Thoracic Surgery (Cardiothoracic Vascular Surgery); ATTEND Thoracic Surgery (Cardiothoracic Vascular Surgery)
PROC: 06BP4ZZ Excision of Right Saphenous Vein, Percutaneous Endoscopic Approach (ICD-10-PCS; 2024-08-30)
PROC: 02100Z9 Bypass Coronary Artery, One Artery from Left Internal Mammary, Open Approach (ICD-10-PCS; 2024-08-30)
PROC: B24BZZ4 Ultrasonography of Heart with Aorta, Transesophageal (ICD-10-PCS; 2024-08-30)
PROC: 021109W Bypass Coronary Artery, Two Arteries from Aorta with Autologous Venous Tissue, Open Approach (ICD-10-PCS; principal; 2024-08-30 07:55)
PROC: 5A09357 Assistance with Respiratory Ventilation, Less than 24 Consecutive Hours, Continuous Positive Airway Pressure (ICD-10-PCS; 2024-08-31)
PROC: 5A0935A Assistance with Respiratory Ventilation, Less than 24 Consecutive Hours, High Flow/Velocity Cannula (ICD-10-PCS; 2024-09-01)
DX: I25.10 Atherosclerotic heart disease of native coronary artery without angina pectoris (principal); I48.91 Unspecified atrial fibrillation; E78.5 Hyperlipidemia, unspecified; E11.610 Type 2 diabetes mellitus with diabetic neuropathic arthropathy; I11.9 Hypertensive heart disease without heart failure; E11.42 Type 2 diabetes mellitus with diabetic polyneuropathy; Z95.5 Presence of coronary angioplasty implant and graft; Z87.891 Personal history of nicotine dependence
CPT/HCPCS: 93312; 93325; Z7506; Z7508; 36415; 36600; 71045; 71046; 80048; 80053; 81003; 82330; 82435; 82803; 82947; 82948; 83036; 83735; 84100; 84132; 84295; 85018; 85025; 85347; 85610; 85730; 86885; 86900; 86901; 86920; 87070; 87081; 93005; 93880; 93970; 94002; 94010; 94660; 94664; 94760; 97110; 97116; 97162; 97530; A4615; A4618; A6258; A6402; A6449; A7000; A7048; C1751; C1758; G0378; J0171; J0282; J0665; J0690; J1100; J1250; J1265; J1644; J1815; J1885; J1940; J2060; J2270; J2405; J2704; J2720; J3370; J3475; J3480; J3490; J7030; J7040; J7050; J7060; J7120; P9045